=== PATIENT | male | born 1990 | race Caucasian/White ===

== ENCOUNTER 2019-03-28 02:41 | Emergency (ER) | payer BC ==
[~2019-03-28] VITALS: Ht 180.3 cm; Wt 98.9 kg
[2019-03-28 02:46] VITALS: Ht 180.3 cm; Wt 98.9 kg
[2019-03-28 04:40] VITALS: BP 120/82
== END 2019-03-28 04:40 | disposition home or self-care (01) ==
LOC: ED 02:41
DX: K21.9 Gastro-esophageal reflux disease without esophagitis (principal)
CPT/HCPCS: J1885

== ENCOUNTER 2019-03-28 20:00 | Inpatient (IN) | payer BC ==
[~2019-03-28] VITALS: Ht 188 cm; Wt 94.8 kg
[2019-03-28 20:11] VITALS: Ht 188 cm; Wt 94.8 kg
[2019-03-28 20:45] LABS: BASOPHIL % 0.4 % (0-2); PLATELET COUNT 325 x10^3mcL (130-400); RED CELL DISTRIBUTION WIDTH 13.5 % (11.5-14.5)
[2019-03-28 20:54] LABS: CALCIUM 9.4 mg/dL (8.5-10.1); CARBON DIOXIDE 27.5 mmol/L (21-32); CHLORIDE SERUM 101 mmol/L (98-107); CREATININE SERUM 0.7 mg/dL (0.7-1.3); GFR1 > 60 mL/min; GLUCOSE SERUM 107 mg/dL (74-106); POTASSIUM SERUM 4.1 mmol/L (3.5-5.1); SODIUM SERUM 138 mmol/L (136-145)
[2019-03-28 20:58] LABS: ALBUMIN 4.2 g/dL (3.4-5.0); ALKALINE PHOSPHATASE 191 U/L (46-116); ALT/SGPT 521 U/L (16-63); AST/SGOT 161 U/L (15-37); BILIRUBIN TOTAL 5.16 mg/dL (0.20-1.00); LIPASE 67 IU/L (73-393)
[2019-03-28 21:00] LABS: TOTAL PROTEIN, SERUM 8.6 g/dL (6.4-8.2)
--- NOTE | 2019-03-28 21:24 | NUR ---
PT CAME TO ED FOR EPIGASTRIC PAIN SINCE SUNDAY. PT STS HE HAS HX OF HEART BURN, PT STS HE USUALLY TAKES MEDICATION DAILY. PT STS THE PAIN IS RADIATING TO THE BACK. PT WAS SEEN HERE LAST NIGHT. PT STS HE WENT HOME AND THE PAIN NEVER SUBSIDED. PT DISCRIBES THE PAIN PRESSURE PAIN, THAT IS CONSTANT SINCE 11 AM. NO S/S OF DISTRESS. RESP E/U. COMFORT MEASURES IMPLEMENTED. WILL CONTINUE TO MONITOR.
--- NOTE | 2019-03-28 21:50 | NUR ---
EMT AT BEDSIDE FOR EKG.
--- NOTE | 2019-03-28 22:06 | NUR ---
PT VERBALIZED UNDERSTANDING OF MEDICATION TEACHING. SEE EMAR FOR DETAILS.
--- NOTE | 2019-03-28 23:17 | NUR ---
PT TAKEN TO MED SURG FLOOR ACCOMPANIED BY EMT. NO S/S OF DISTRESS. RESP E/U. IV SITE PATENT, PT DENIES PAIN OR DISCOMFORT TO IV SITE. NO S/S OF INFILTRATION.
[2019-03-28 23:45] VITALS: BP 136/90
--- NOTE | 2019-03-28 23:47 | NUR ---
RECEIVED PT FROM ED VIA LENNIE. ORIENTED PT TO ROOM AND SURROUNDINGS. IV NOTED TO RFA PATENT AND INTACT .INSTRUCTED PT ON THE USE OF CALL LIGHT FOR ASSISTANCE. ENDORSED PT TO PRIMARY NURSE LEONEL
--- NOTE | 2019-03-29 00:01 | NUR ---
RECIEVED PT IN NO ACUTE DISTRESS FROM SURU RN. ORIENTED TO ROOM. BED IN LOWEST POSITION, 2 SIDE RAILS UP, CALL LIGHT IN REACH. INSTRUCTED TO CALL FOR ASSISTANCE. FAMILY MEMBER AT BEDSIDE.
[2019-03-29 00:48] LABS: T3 TOTAL 1.06 ng/mL
[2019-03-29 00:49] LABS: T4(THYROXINE) 8.5 ug/dL (4.7-13.3)
[2019-03-29 00:54] VITALS: BP 136/90
[2019-03-29 02:50] LABS: UA SPECIFIC GRAVITY 1.015 (1.005-1.035); microscopic required? YES; urine erythrocyte TRACE (NEGATIVE)
[2019-03-29 03:37] LABS: AMPHETAMINE QUAL UR NONE DETECTED (See below)
[2019-03-29 05:45] VITALS: BP 121/64
--- NOTE | 2019-03-29 06:23 | NUR ---
NO C/O ABD PAIN THIS AM. NPO SINCE 2299 FOR POSSIBLE PROCEDURE TODAY. NO ACUTE DISTRESS NOTED. WILL ENDORSE TO ONCOMING RN.
--- NOTE | 2019-03-29 06:24 | NUR ---
NO C/O ABD PAIN THIS AM. NPO SINCE 0000 FOR POSSIBLE PROCEDURE TODAY. NO ACUTE DISTRESS NOTED. WILL ENDORSE TO ONCOMING RN.
[2019-03-29 06:35] LABS: BASOPHIL % 0.4 % (0-2); PLATELET COUNT 300 x10^3mcL (130-400); RED CELL DISTRIBUTION WIDTH 13.6 % (11.5-14.5)
[2019-03-29 06:56] LABS: ALBUMIN 3.5 g/dL (3.4-5.0); ALKALINE PHOSPHATASE 160 U/L (46-116); ALT/SGPT 435 U/L (16-63); AST/SGOT 127 U/L (15-37); BILIRUBIN TOTAL 5.5 mg/dL (0.20-1.00); CALCIUM 8.8 mg/dL (8.5-10.1); CARBON DIOXIDE 27.9 mmol/L (21-32); CHLORIDE SERUM 105 mmol/L (98-107); CREATININE SERUM 0.7 mg/dL (0.7-1.3); GFR1 > 60 mL/min; GLUCOSE SERUM 81 mg/dL (74-106); SODIUM SERUM 142 mmol/L (136-145); TOTAL PROTEIN, SERUM 7.3 g/dL (6.4-8.2)
[2019-03-29 07:03] LABS: MAGNESIUM 2.1 mg/dL (1.8-2.4); PHOSPHOROUS 3.8 mg/dL (2.5-4.9)
--- NOTE | 2019-03-29 07:40 | NUR ---
A+OX4, NO RESPIRATORY DISTRESS NOTED, MEDSURG, PULSES MODERATE AND EQUAL JESSE, NO EDEMA NOTED, LUNG SOUNDS CTA, TOLERATING RA, BOWEL SOUNDS ACTIVE, VOIDING FREELY, GENERALIZED WEAKNESS, SKIN INTACT, IV IN RFA WITH NS @ 100 ML/HR, SITE WNL, DENIES PAIN, CALL LIGHT WITHIN REACH.
[2019-03-29 08:46] VITALS: BP 124/72
--- NOTE | 2019-03-29 10:39 | NUR ---
PT RESTING IN BED, NO RESPIRATORY DISTRESS NOTED, DENIES PAIN, MOTHER AT BEDSIDE, CALL LIGHT WITHIN REACH.
--- NOTE | 2019-03-29 10:52 | NUR ---
DR PEREZ TELEPHONED AND ORDERED MRI MRCP STAT. LEISA MACDONALD NOTIFIED AND WILL SEEK APPROVAL FROM ADMINISTRATION. DR COPELAND NOTIFIED AND DR WILLSON NOTIFIED. PER LEISA MACDONALD AND RADIOLOGY DEPT, NO INFORMATICS SPECIALIST AVAILABLE UNTIL SUNDAY. CHARGE NURSE AWARE OF ALL THE ABOVE.
--- NOTE | 2019-03-29 11:03 | NUR ---
DR PEREZ ORDERED TO CANCEL MRI MRCP.
--- NOTE | 2019-03-29 14:16 | NUR ---
WITNESSED PT SIGN CONSENT FOR ERCP. PT STATES DR PEREZ ANSWERED ON QUESTIONS. PT RESTING IN BED, NO RESPIRATORY DISTRESS NOTED, DENIES PAIN, TOLERATING LOW FAT DIET WELL, DENIES NAUSEA AND VOMITING, CALL LIGHT WITHIN REACH.
--- NOTE | 2019-03-29 16:06 | NUR ---
PT RESTING IN BED, NO RESPRIATORY DISTRESS NOTED, DENIES PAIN, DENIES N/V/D, CALL LIGHT WITHIN REACH.
[2019-03-29 16:21] VITALS: BP 120/69
--- NOTE | 2019-03-29 18:52 | NUR ---
PT RESTING IN BED, NO RESPRIATORY DISTRESS NOTED, DENIES PAIN, CALL LIGHT WITHIN REACH.
--- NOTE | 2019-03-29 19:13 | NUR ---
ENDORSED CARE TO VENITA SANCHEZ.
--- NOTE | 2019-03-29 19:30 | NUR ---
PT SEEN, ASLEEP BUT EASILY AROUSABLE, ALERT AND ORIENTED, DENIES HEADACHE OR DIZZINESS, BREATHING EVEN AND UNLABORED, LUNG SOUNDS CLEAR, ON ROOM AIR WITH NO RESP DISTRESS NOTED, MEDSURG PT, DENIES CHEST PAIN, IVF INFUSING WELL, NPO AFTER MN FOR AM ERCP, ABD SOFT AND FLAT WITH ACTIVE BS, NO BM AT THIS TIME, DENIES ABD PAIN AT THIS TIME, NO DISTRESS NOTED, WILL KEEP TO MONITOR.
[2019-03-29 20:24] VITALS: BP 123/78
--- NOTE | 2019-03-30 05:31 | NUR ---
PT ASLEEP BUT EASILY AROUSABLE, SLEPT MOST OF NIGHT, NPO AFTER MN, MEDICATED PT WITH MORPHINE 2MG VIA IVP X 1 FOR ABD PAIN WITH GOOD RELIEF, CONDITION NO CHANGE, NO DISTRESS NOTED, WILL KEEP TO MONITOR.
[2019-03-30 05:56] VITALS: BP 116/66
[2019-03-30 06:39] LABS: BASOPHIL % 0.4 % (0-2); PLATELET COUNT 304 x10^3mcL (130-400); RED CELL DISTRIBUTION WIDTH 13.8 % (11.5-14.5)
[2019-03-30 06:42] LABS: ALBUMIN 3.4 g/dL (3.4-5.0); ALKALINE PHOSPHATASE 171 U/L (46-116); ALT/SGPT 341 U/L (16-63); AST/SGOT 82 U/L (15-37); BILIRUBIN TOTAL 1.36 mg/dL (0.20-1.00); CALCIUM 8.9 mg/dL (8.5-10.1); CARBON DIOXIDE 25.5 mmol/L (21-32); CHLORIDE SERUM 105 mmol/L (98-107); CREATININE SERUM 0.8 mg/dL (0.7-1.3); GFR1 > 60 mL/min; GLUCOSE SERUM 83 mg/dL (74-106); POTASSIUM SERUM 4.1 mmol/L (3.5-5.1); SODIUM SERUM 141 mmol/L (136-145); TOTAL PROTEIN, SERUM 7.5 g/dL (6.4-8.2)
--- NOTE | 2019-03-30 07:11 | NUR ---
PT OFF THE UNIT TO OR FOR ERCP, REPORT GIVEN TO PARAM-RN, ALL QUESTIONS ANSWERED AND CONCERNS ADDRESSED. MARCIE WIPES DONE.
--- NOTE | 2019-03-30 07:32 | NUR ---
PT NOW OFF UNIT FOR ERCP.
--- NOTE | 2019-03-30 09:36 | NUR ---
PT BACK ON UNIT FROM ERCP, VS STABLE, NO RESPRIATORY DISTRESS NOTED, DENIES PAIN, DENIES NAUSEA/VOMITING, FAMILY AT BEDSIDE, CALL LIGHT WITHIN REACH.
--- NOTE | 2019-03-30 10:40 | NUR ---
PT AND FAMILY REPORTED FLOOR IS SLIPPERY. PER EVS, POSSIBLY TOO MUCH WAX WAS USED TO PREVIOUSLY CLEAN FLOOR. ASKED PT TO MOVE TO ANOTHER ROOM FRO SAFETY. PT AND FAMILY REFUSING TO MOVE ROOMS BECAUSE PT DOES NOT WANT A ROOMMATE. PT AND ROOMMATE EDUCATED ON FALL RISK. PT AND FAMILY STATE THEY ARE AWARE OF FALL RISK AND ACCEPT LIABILITY IF PT OR FAMILY FALLS. EVS NOW IN ROOM TO TRY TO REMOVE WAX AND CLEAN FLOOR. HOUSE SUP AND CHARGE NURSE NOTIFIED OF ALL THE ABOVE.
--- NOTE | 2019-03-30 10:57 | NUR ---
SUMAN VEGA COLLECTIONS REPRESENTATIVE OKAY FOR PT TO SHOWER. PT GIVEN SHOWER SUPPLIES AND MOTHER TO ASSIST PT WITH SHOWERING.
--- NOTE | 2019-03-30 11:37 | NUR ---
PT AMBULATING AROUND UNIT INDEPENDENTLY WITH MOTHER, NO RESPRIATORY DISTRESS NOTED, DENIES PAIN, DENIES NAUSEA, GAIT STEADY.
--- NOTE | 2019-03-30 13:06 | NUR ---
PT COMPLAINING OF 9/10 ABD PAIN, MORPHINE IVP GIVEN, NO RESPRIATORY DISTRESS NOTED, CALL LIGHT WITHIN REACH. FAMILY AT BEDSIDE.
--- NOTE | 2019-03-30 14:27 | NUR ---
PT CONT TO COMPLAIN OF 10/10 ABD PAIN WITH NO RELIEF FROM MORPHINE, GARY TOOL REPAIR TECHNICIAN NOTIFIED. GARY TOOL REPAIR TECHNICIAN STATED TO GIVE PT NORCO PO. NORCO PO GIVEN. NO RESPRIATORY DISTRESS NOTED. FAMILY AT BEDSIDE.
--- NOTE | 2019-03-30 15:39 | NUR ---
DR PEREZ NOTIFIED THAT PT HAVING 10/10 PAIN WITH NO RELIEF FROM MORPHINE OR NORCO PO. DR PEREZ TELEPHONE ORDERED DILAUDID IVP 2 MG Q4HRS PRN AND LACTATED RINGERS @ 200 ML/HR. PT NOW NPO.
[2019-03-30 16:11] VITALS: BP 123/77
--- NOTE | 2019-03-30 16:38 | NUR ---
PT CONT TO COMPLAIN OF 10/10 ABD/EPIGASTRIC PAIN, DILUADID IVP GIVEN. ALL PYXIS NOT WORKING. PER PHARMACIST, I PICKED UP DILAUDID IVP FROM PHARMACY IN PERSON. I THEN ADMINISTERED 2 MG/ML DILAUDID IVP TO PT, 0 WASTE. CHARGEW NURSE NOTIFIED OF ALL THE ABOVE.
--- NOTE | 2019-03-30 18:45 | NUR ---
PT RESTING IN BED, NO RESPIRATORY DISTRESS NOTED, STATES PAIN IS TOLERABLE AT THIS TIME, MOTHER AT BEDSIDE, CALL LIGHT WITHIN REACH.
--- NOTE | 2019-03-30 19:21 | NUR ---
ENDORSED CARE TO VENITA SANCHEZ.
--- NOTE | 2019-03-30 19:27 | NUR ---
PT SEEN, ASLEEP BUT EASILY AROUSABLE, ALERT AND ORIENTED X4 AND VERY VERBALLY RESPONSIVE, DENIES HEADACHE OR DIZZINESS, BREATHING EVEN AND UNLABORED, LUNG SOUNDS CLEAR, ON O2 2L VIA NC POST ERCP DUE TO C/O OF DIFFCULTY BREATHING AFTER PROCEDURE, NO RESP DISTRESS OR SOB NOTED, MEDSURG PT, DENIES CHEST PAIN, IVF INFUSING WELL, NPO AT THIS TIME, ABD SOFT AND FLAT WITH ACTIVE BS, NO BM AT THIS TIME, C/O OF ON AND OFF ABD PAIN AT TIMES, VOIDING FREELY, NO DISTRESS NOTED, WILL KEEP TO MONITOR.
[2019-03-30 20:41] VITALS: BP 127/85
--- NOTE | 2019-03-30 20:42 | NUR ---
DR THOMAS AT BEDSIDE AND BECCA QUINTANILLA MD DISCUSSED THE POC AND POSS SURGERY IN AM.
--- NOTE | 2019-03-30 20:50 | NUR ---
PT C/O OF SEVERE ABD PAIN, DILAUDID 2MG VIA IVP ADMINISTERED.
--- NOTE | 2019-03-30 20:55 | NUR ---
PT SIGNED THE CONSENT FOR SURGERY.
--- NOTE | 2019-03-31 01:30 | NUR ---
ROUNDS MADE, PT AWAKE AND RESTING IN BED, DENIES ANY ABD PAIN AT THIS TIME, ONLY STATED A LITTLE DISCOMFORT, IVF INFUSING WELL, MOTHER AT BEDSIDE, WILL KEEP TO MONITOR.
--- NOTE | 2019-03-31 03:10 | NUR ---
PT C/O OF SEVERE ABD PAIN, DILAUDID 2MG VIA IVP ADMINISTERED, NO DISTRESS NOTED, WILL KEEP TO MONITOR.
[2019-03-31 05:53] VITALS: BP 129/91
--- NOTE | 2019-03-31 06:07 | NUR ---
PT AWAKE AND RESTING IN BED, SLEPT ON AND OFF WHOLE NIGHT DUE TO ABD PAIN, MEDICATED WITH DILAUDID IVP WITH GOOD RELIEF, STILL REMAINING ON NPO, IVF INFUSING WELL, NO DISTRESS NOTED, WILL KEEP TO MONITOR.
[2019-03-31 06:39] LABS: PLATELET COUNT 293 x10^3mcL (130-400); RED CELL DISTRIBUTION WIDTH 13.6 % (11.5-14.5)
[2019-03-31 06:53] LABS: BASOPHIL % 0 % (0-2)
[2019-03-31 07:08] LABS: ALBUMIN 3.7 g/dL (3.4-5.0); ALKALINE PHOSPHATASE 151 U/L (46-116); ALT/SGPT 306 U/L (16-63); AST/SGOT 66 U/L (15-37); BILIRUBIN DIRECT 0.51 mg/dL (0.0-0.2); CALCIUM 9.3 mg/dL (8.5-10.1); CARBON DIOXIDE 32.1 mmol/L (21-32); CHLORIDE SERUM 101 mmol/L (98-107); CREATININE SERUM 0.7 mg/dL (0.7-1.3); GFR1 > 60 mL/min; GLUCOSE SERUM 102 mg/dL (74-106); LACTIC DEHYDROGENASE (LDH) 190 U/L (100-190); POTASSIUM SERUM 4.8 mmol/L (3.5-5.1); SODIUM SERUM 139 mmol/L (136-145); TOTAL PROTEIN, SERUM 7.9 g/dL (6.4-8.2)
[2019-03-31 07:11] LABS: AMYLASE 864 U/L (25-115)
--- NOTE | 2019-03-31 07:20 | NUR ---
BEDSIDE HANDOFF REPORT GIVEN TO SP-LAURA, ALL QUESTIONS ANSWERED AND CONCERNS ADDRESSED.
--- NOTE | 2019-03-31 07:30 | NUR ---
PATIENT RESTING IN BED, WATCHING TV. MOTHER AT BEDSIDE. PATIENT IS A/O X4, NO ACUTE DISTRESS NOTED AT THIS TIME. LUNG SOUNDS CTA, DENIES SOB. PATIENT DENIES PAIN AT THIS TIME, STATES THAT MOVEMENT INCREASES PAIN. EDUCATED PATEINT ON PAIN MANAGEMENT. LR INFUSING TO RFA AT 200ML/HR, NO S/S OF INFILTRATION. CALL LIGHT WITHIN REACH, BED IN LOW POSITION, WILL CONTINUE TO MONITOR FOR CHANGES.
[2019-03-31 07:48] LABS: LIPASE 4015 IU/L (73-393)
--- NOTE | 2019-03-31 08:00 | NUR ---
PATIENT WENT DOWN TO OR FOR LAP CHOL., PATIENT IS SALIE LOCK TO RFA. CONSENT FORM SIGNED AND PLACED IN CHART, RPORT GIVEN TO LU. WILL FOLLOW UP WITH OR.
[2019-03-31 08:43] VITALS: BP 142/94
--- NOTE | 2019-03-31 08:55 | NUR ---
REPORT RECEIVED FROM OR. PATIENT DID NOT HAVE PROCEDURE TODAY AND WILL INSTEAD BE DONE TOMORROW EVENING DUE TO PANCREATITIS. PATIENT ARRIVED VIA GURNEY. NO ACUTE DISTRESS NOTED, CALL LIGHT WITHIN REACH, BED IN LOW POSITION. WILL CONTINUE TO MONITOR FOR CHANGES.
--- NOTE | 2019-03-31 10:00 | NUR ---
SENIOR INFORMATION SECURITY ARCHITECT GARY AWARE PATIENT AMYLASE 864, LIPASE [id number], WBC 16.1. NO FURTHER ORDERS AT THIS TIME. WILL CONTINUE TO MONITOR.
--- NOTE | 2019-03-31 14:48 | NUR ---
PATIENT C/O MILD TO MODERATE PAIN TO ABDOMEN AND BACK. PATIENT STATED HE DID NOT WANT A NORCO, BUT WANTED TO TRY A TYLENOL FOR NOW. MEDICATED PATIENT WITH TYLENOL PER PROTOCOL (SEE EMAR). WILL CONTINUE TO MONITOR AND MANAGE PATIENT PAIN.
--- NOTE | 2019-03-31 16:28 | NUR ---
PATIENT WAS C/O ABDOMINAL PAIN AND BACK PAIN 05/13, MEDICATED PATIENT WITH DIALAUDID PER PROTOCOL (SEE EMAR). REPOSITION PATIENT FOR COMFORT, CALL LIGHT WITHIN REACH. WILL CONTINUE TO MONITOR AND MANAGE PAIN.
[2019-03-31 16:49] VITALS: BP 130/84
--- NOTE | 2019-03-31 18:42 | NUR ---
PATIENT RESTING IN BED, NO ACUTE DISTRESS NOTED. PATIENT DENIES PAIN. NO ACUTE CHANGES NOTED THROUGH SHIFT, PATIENT IS STABLE. LR INFUSING TO RFA AT 200ML/HR, IV SITE CDI& PATENT, NO S/S OF INFILTRATION. CALL LIGHT WITHIN REACH, BED IN LOW POSITION. WILL ENDORSE REPORT TO NIGHT RN.
--- NOTE | 2019-03-31 19:25 | NUR ---
RECEIEVED PT RESTING IN BED, FAMILY AT BEDSIDE. PT AOX4, DENIES RODRIGUES/DIZZINESS. MEDSURG PT, DENIES CP. PULSES PALPABLE BILAT, DENIES NUMBNESS/TINGLING IN FEET. RESP EVEN AND UNLABORED ON 2LNC, PT REPORTS HE FEELS SOB AT TIMES D/T PAIN. EDUCATED PT IN REGARDS TO UTILIZING O2 WHEN NOT NEEDED IS NOT RECOMMENDING AND ENCOURAGED DEEP BREATHING. PT REPORTS HE STILL NEEDS IT. ABD SOFT, FLAT, REPORTS PAIN IN LLQ. PT REPORTS HE NEEDS AN ICE PACK TO "DECREASE THE INFLAMMATION IN HIS PANCEAS. WILL PROVIDE ICE PACK PRN. PT VOIDS FREELY, DENIES DYSURIA. AMBULATORY PT ALTHOUGH PT STATES IT IS TOO PAINFUL TO WALK. EDUCATED PT WILL MEDICATE HIM BUT WALKING IS ENCOURAGED AFTER PAIN IS MANAGED. PT VERBALIZES UNDERSTANDING. SKIN INTACT. IV SITE TO THE RFA, LR @ 200ML/HR. NO REDNESS, SWELLING OR PAIN NOTED. ALL COMFORT AND SAFETY MEASURES PROVIDED FOR, CALL LIGHT WITHIN REACH, BED IN LOWEST POSITION, WILL CONTINUE TO MONITOR.
[2019-03-31 20:30] VITALS: BP 135/87
--- NOTE | 2019-04-01 05:00 | NUR ---
PT RESTED IN INTERVALS DURING SHIFT AFTER MEDICATION WAS PROVIDED. PT DENIES N/V/S DURING SHIFT. PT MOTHER REMAINS AT BEDSIDE AND MADE SEVERAL REQUESTS ON PATIENTS BEHALF. PT REPORTS ICE PACKS AND DILAUDID ARE WHAT HELP HIM WITH THE PAIN THE MOST. PT REMAINS ON 2LNC FOR COMFORT. IV SITE REMAINS PATENT TO RFA LR @ 200ML/HR. PAGED RESIDENT REE IN REGARDS TO ORDERING MORNING LABS SINCE PATIENT LAP TABBY PENDING RESOLUTION OF PANCREATITIS. NO NEW ORDERS AT THIS TIME, CALL LIGHT WITHIN REACH, BED IN LOWEST POSITION, WILL CONTINUE TO MONITOR.
[2019-04-01 05:27] VITALS: BP 129/85
--- NOTE | 2019-04-01 07:15 | NUR ---
RECEIVED PT. IN BED A/A/O X3. NO SOB, NO N/V NOTED. PT. STILL C/O ON AND OFF ABD. PAIN. LR RUNNING AT 200 CC/HR VIA IV SITE AT R FA. SCD TO BLE MAINTAINED. BED IN LOW POS., CALL LIGHT WITHIN REACH. SIDE RAILS UP X3.
--- NOTE | 2019-04-01 07:34 | NUR ---
ENDORSED ALL CARE TO DAYSHIFT NURSE, NO ACUTE DISTRESS NOTED. ALL QUESTIONS AND CONCERNS ADDRESSED, CALL LIGHT WITHIN REACH, BED IN LOWEST POSITION.
[2019-04-01 08:30] LABS: BASOPHIL % 0.1 % (0-2); PLATELET COUNT 288 x10^3mcL (130-400); RED CELL DISTRIBUTION WIDTH 13.8 % (11.5-14.5)
[2019-04-01 08:39] LABS: CALCIUM 8.3 mg/dL (8.5-10.1); CARBON DIOXIDE 26.5 mmol/L (21-32); CHLORIDE SERUM 100 mmol/L (98-107); CREATININE SERUM 0.7 mg/dL (0.7-1.3); GFR1 > 60 mL/min; GLUCOSE SERUM 86 mg/dL (74-106); POTASSIUM SERUM 3.7 mmol/L (3.5-5.1); SODIUM SERUM 137 mmol/L (136-145)
--- NOTE | 2019-04-01 08:49 | NUR ---
CALLED AND REPORTED WBC (19.5) TO THE NURSE PRACTITIONER FANI SUAREZ. FANI STATED SHE WILL ORDER IV ANTIBIOTICS FOR THE PT.
[2019-04-01 09:20] VITALS: BP 124/77
--- NOTE | 2019-04-01 10:30 | NUR ---
MARCIE WIPES GIVEN PRIOR TO SURGERY
--- NOTE | 2019-04-01 12:30 | NUR ---
PT. IS BEING TAKEN TO O.R. FOR SURGERY AT THIS TIME.
--- NOTE | 2019-04-01 16:50 | NUR ---
RECEIVED PT. BACK FROM RECOVERY DEPT. PT. IS S/P LAP. TABBY. TODAY. PT. APPEARS DROWSY. NO SOB, NO N/V NOTED. ABD. INCISIONS X 3 COVERED WITH BANDAGES CDI. TOMMIE DRAIN NOTED TO R ABDOMEN DRAINING SEROSANGUINEOUS FLUID. B/P= 139/80, P= 99, R.R.= 14, T= 98.7, O2 SAT.= 96% (WITH O2 AT 2L NC). WILL CONTINUE TO MONITOR. MOTHER AT BEDSIDE.
[2019-04-01 16:55] VITALS: BP 139/80
[2019-04-01 17:20] VITALS: BP 119/76
--- NOTE | 2019-04-01 17:55 | NUR ---
REMAINS IN STABLE CONDITION AT THIS TIME. TOMMIE DRAIN OUTPUT= 80 CC (SEROSANGUINEOUS). WILL CONTINUE TO MONITOR.
--- NOTE | 2019-04-01 19:30 | NUR ---
RECEIVED REPORT FROM DAY SHIFT RN. PT RESTING IN BED. AA&O X4. NO SOB ON O2 2L VIA NC. BREATHING EVEN AND UNLABORED. NO C/O PAIN AT THIS TIME. IV TO RFA, LR INFUSING. ABD INCISIONS X3 COVERED WITH BANDAIDS, C/D/I. TOMMIE DRAIN TO RIGHT ABD DRAINING SEROSANGUINOUS FLUID, DRESSING C/D/I. SAFETY MEASURES IN PLACE. BED IN LOWEST POSITION. SIDE RAILS UP X2. ENCOURAGED PT TO AMBULATE. INSTRUCTED TO USE THE CALL LIGHT FOR ASSISTANCE. CALL LIGHT WITHIN REACH. MOTHER AT BEDSIDE.
[2019-04-01 20:50] VITALS: BP 115/79
--- NOTE | 2019-04-02 00:03 | NUR ---
PT C/O ABD INCISION SITE BURNING PAIN 02/10. PT REFUSED NORCO. PT STATES HE GETS STOMACHACHE FROM IT. DILAUDID GIVEN.
[2019-04-02 05:42] VITALS: BP 115/79
[2019-04-02 06:16] LABS: BASOPHIL % 0.1 % (0-2); PLATELET COUNT 254 x10^3mcL (130-400); RED CELL DISTRIBUTION WIDTH 13.7 % (11.5-14.5)
[2019-04-02 06:19] LABS: CALCIUM 8.1 mg/dL (8.5-10.1); CARBON DIOXIDE 33.7 mmol/L (21-32); CHLORIDE SERUM 103 mmol/L (98-107); CREATININE SERUM 0.8 mg/dL (0.7-1.3); GFR1 > 60 mL/min; GLUCOSE SERUM 94 mg/dL (74-106); MAGNESIUM 1.8 mg/dL (1.8-2.4); POTASSIUM SERUM 4.4 mmol/L (3.5-5.1); SODIUM SERUM 141 mmol/L (136-145)
--- NOTE | 2019-04-02 07:00 | NUR ---
PT RESTING IN BED. BREATHING EVEN AND UNLABORED ON O2 2L VIA NC. NO DISTRESS NOTED. ABD DRESSING X3, C/D/I. TOMMIE DRAIN DRSG C/D/I, WITH 270 ML SEROSANGUINOUS OUTPUT. PT AMBULATED TO THE BATHROOM AND SAT ON THE CHAIR FOR A FEW MINUTES. NO BM POST OP. PT STATES BURPING BUT NOT PASSING GAS. DENIES N/V. SAFETY MEASURES MAINTAINED. WILL ENDORSE CARE TO DAY SHIFT RN.
[2019-04-02 07:20] VITALS: BP 125/77
--- NOTE | 2019-04-02 07:47 | NUR ---
HANDOFF REPORT RECEIVED. PATIENT AWAKE WITH O2 AT 2LPM. 86% ON ROOM AIR. PROVIDED INCENTIVE SPIROMETER AND ENCOURAGED ITS USE 10X EVERY HOUR.
--- NOTE | 2019-04-02 07:50 | NUR ---
ASSISTED OOB TO CHAIR. NORCO PO GIVEN FOR 5/10 INCISIONAL PAIN.
--- NOTE | 2019-04-02 09:12 | NUR ---
AMBULATED ONE FULL LAP. WELL TOLERATED.
--- NOTE | 2019-04-02 11:20 | NUR ---
STATED: " I ALREADY PASSED GAS 2X". DENIES ANY PAIN. INSTRUCTED TO CONTINUE AMBULATIONS AND USE OF IS.
--- NOTE | 2019-04-02 14:36 | NUR ---
AMBULATING IN THE HALLWAY WITH HIS AUNT. NOT IN ANY DISTRESS.
[2019-04-02 16:59] VITALS: BP 130/82
--- NOTE | 2019-04-02 17:30 | NUR ---
STATED " I FEEL HOT INSIDE" NO CHILLS. TEMP 97 DEGREES. REMINDED USE OF IS AND CONTINUE AMBULATION. WILL RECHECK TEMP.
--- NOTE | 2019-04-02 19:11 | NUR ---
HANDOFF REPORT GIVEN TO LAURA FRAUSTO. PATIENT IN BED AND NOT IN ANY DISTRESS. TEMP RECHEC: 99.7
[2019-04-02 19:25] VITALS: BP 127/79
--- NOTE | 2019-04-02 19:25 | NUR ---
RECEIVED PT AWAKE ALERT AND VERBALLY RESPONSIVE.S/P LAP TABBY 04/01/19.ABDOMINAL INCISION WITH DRESSING X4 AND TOMMIE DRAIN TO PINKISH COKLORED OUTPUT IN SMALL AMT.ACTIVE BOWEL SOUNDS.ABDOMEN SOFT AND ROUND.LBM 03/30/19.PASSING GAS/BURPING.VOIDING WELL.DENIES ANY PAIN AT THIS TIME.BP 127/79 MMHG,HR 114.ENCOURAGED USE OF INCENTIVE SPIROMETER QIH,DOING 750 AT THIS TIME.ALSO ENCOURAGED AMBULATION.WILL CONTINUE TO MONITOR.
--- NOTE | 2019-04-03 04:38 | NUR ---
PT SLEPT WELL WITH MOTHER AT BEDSIDE.DENIES ANY PAIN OR DISCOMFORT.CONTINUED TO ENCOURAGED AMBULATION AND USE OF INCENTIVE SPIROMETER.EMPTIED 120 ML PINKISH COLORED OUTPUT FROM TOMMIE DRAIN.NO ASE NOTED FROM FLAGYL IV ATB.ALL NEEDS MET.WILL CONTINUE TO MONITOR.
--- NOTE | 2019-04-03 05:11 | NUR ---
PT AFEBRILE ALL NIGHT.SMALL BM LAST NIGHT,AMBULATED IN HALLWAY AND TOLERATED WELL.WILL CONTINUE TO MONITOR.
[2019-04-03 05:29] VITALS: BP 131/82
[2019-04-03 06:22] LABS: BASOPHIL % 0.1 % (0-2); PLATELET COUNT 299 x10^3mcL (130-400); RED CELL DISTRIBUTION WIDTH 13.6 % (11.5-14.5)
[2019-04-03 06:43] LABS: CALCIUM 7.6 mg/dL (8.5-10.1); CARBON DIOXIDE 30.9 mmol/L (21-32); CHLORIDE SERUM 101 mmol/L (98-107); CREATININE SERUM 0.7 mg/dL (0.7-1.3); GFR1 > 60 mL/min; GLUCOSE SERUM 115 mg/dL (74-106); SODIUM SERUM 141 mmol/L (136-145)
[2019-04-03 06:55] LABS: POTASSIUM SERUM 2.9 mmol/L (3.5-5.1)
--- NOTE | 2019-04-03 06:58 | NUR ---
RECEIVED POTASSIUM LEVEL THIS AM @ 2.9.PAGED KRISTIN MOHR AND MADE AWARE.WILL ENDORSE TO AM NURSE.
--- NOTE | 2019-04-03 07:05 | NUR ---
RECEIVED PATIENT AWAKE/ALERT IN BED REPORT NO PAIN, DENIES N/V. IV TO RFA INTACT AND INFUSING WELL. POC DISCUSS WITH PT AND MOTHER; ENCOURAGE PT TO WALK IN HALLWAY. CALL LIGHT WITHIN REACH.
[2019-04-03 09:00] VITALS: BP 125/86
[2019-04-03] MEDS ORDERED: LEVOFLOXACIN500 M1 PO (09:29)
[2019-04-03] MEDS ORDERED: FLA250 PO (09:31)
[2019-04-03] MEDS ORDERED: TOR10 PO (09:32)
--- NOTE | 2019-04-03 10:09 | NUR ---
PATIENT RESTING IN BED NO COMPLAINS, K-RIDER 40MEQ IV W/ LIDOCAINE INFUSING TO RFA; K 2.9 AND TEACHING PATIENT TO EMPTY TOMMIE; 30ML SEROSANG. WILL REINFORCED WHEN MOTHER IS HERE. NEEDS MET. CALL LIGHT IN REACH.
--- NOTE | 2019-04-03 11:25 | NUR ---
PATIENT RESTING IN BED NO COMPLAIN, NO PAIN. PT'S MOTHER ADDISON AT BEDSIDE, RN UPDATE POC WITH MOM. QUESTIONS ADDRESSED. LEVAQUIN IVPB INFUSING TO RFA IV PATENT. NEEDS MET. CALL LIGHT WITHIN REACH.
--- NOTE | 2019-04-03 13:00 | NUR ---
PATIENT C/O IV LEAKING, RN ASSESS NOTED LEAKING, STOP IVF AND K-RIDER INFUSING; 50ML LEFT IN K-RIDER. INFORM BENDING PRESS OPERATOR FANI PER BENDING PRESS OPERATOR WILL ORDER KCL PO ADDITIONAL FOR LOW POTASSIUM LEVEL. IV TO RFA REMOVED W/ CATHETER INTACT, NO S/S OF INFECTION OR SWELLING NOTED. GAUZES APPLIED TO SITES. REMOVED OLD BA TO SURGICAL WOUND CLEAN SITE WITH BETADINE AND REAPPLY NEW BANDAIDS AND DRESSING TO TOMMIE SITE. PATIENT TOLERATED WELL.
--- NOTE | 2019-04-03 13:46 | NUR ---
ADDITIONAL KCL 40 MEQ PO ADMINISTERED K 2.9; NEEDS MET. PATIENT SAT UP IN CHAIR WAITING FOR DISCHARGE PAPER WORK.
[2019-04-03 13:56] VITALS: BP 125/86
--- NOTE | 2019-04-03 14:09 | NUR ---
PATIENT SAT IN CHAIR, DISCHARGE INSTRUCTIONS AND PRESCRIPTION ABX PO EXPLAINED, PATIENT AND MOTHER VERBALIZE UNDERSTANDING TO FINISH ABX. F/U APPT INSTRUCTED SCHEDULE. FURNACE AND WASH EQUIPMENT OPERATOR ASSISTING WHEEL PATIENT OUT AT THIS TIME. ALL BELONGINGS WITH MOTHER.
== END 2019-04-03 14:09 | disposition home or self-care (01) | DRG 417 ==
LOC: ED 20:00 → MU 22:45
PROVIDERS: Internal Medicine; Surgery; ADMIT General Practice
PROC: 0F798DZ Dilation of Common Bile Duct with Intraluminal Device, Via Natural or Artificial Opening Endoscopic (ICD-10-PCS; 2019-03-30 07:30)
PROC: BF111ZZ Fluoroscopy of Biliary and Pancreatic Ducts using Low Osmolar Contrast (ICD-10-PCS; 2019-03-30 07:30)
PROC: 0FT44ZZ Resection of Gallbladder, Percutaneous Endoscopic Approach (ICD-10-PCS; principal; 2019-04-01 13:15)
DX: K80.63 Calculus of gallbladder and bile duct with acute cholecystitis with obstruction (principal); K85.90 Acute pancreatitis without necrosis or infection, unspecified; E78.5 Hyperlipidemia, unspecified
CPT/HCPCS: 43262; 84439; C1769; C2625; G0378; J0330; J0694; J1170; J1610; J1885; J1956; J2250; J2270; J2405; J2704; J2710; J3010; J3480; J3490; J7030; J7120; Q9967